=== PATIENT | female | born 1980 | race African-American/Black ===

== ENCOUNTER 2019-07-22 06:58 | Emergency (ER) | payer MEDICAID ==
[~2019-07-22] VITALS: Ht 165.1 cm; Wt 104.3 kg
[2019-07-22] MEDS ORDERED: ALBUTEROL2.5 MG/3 M INH (07:10)
--- NOTE | 2019-07-22 07:20 | NUR ---
ED Nurse Note:urine sent to labs
[2019-07-22 07:34] VITALS: BP 104/74
[2019-07-22 07:42] LABS: APPEARANCE,URINE SLIGHTLY CLOUDY; BILIRUBIN, URINE NEGATIVE (NEGATIVE); COLOR,URINE PALE YELLOW; GLUCOSE, URINE (UA) NEGATIVE (NEGATIVE); KETONES,URINE NEGATIVE (NEGATIVE); LEUKOCYTE ESTERASE ,URINE 3+ (NEGATIVE); NITRITE,URINE NEGATIVE (NEGATIVE); PH,URINE 6.5 (4.5-8.0); PROTEIN,URINE 3+ (NEGATIVE); UROBILINOGEN,URINE NORMAL MG/DL (0.0-1.0)
--- NOTE | 2019-07-22 07:48 | Emergency Room Report ---
History of Present Illness General Chief Complaint: Female Urogenital Problems Source: Patient Present Illness HPI Patient is a 39-year-old female presents after increased dysuria and urinary frequency. She had onset of symptoms 2 days ago. She had prior history of urinary infections. She had not been vomiting. She denies any flank pain. She had not been having any hematuria. Denies any vaginal discharge. She had prior urinary infections in the past. She states this feels similar. She reports having prior tubal ligation. Allergies: Coded Allergies: IODINE (Verified Allergy, Unknown, 07/22/19) Patient History Past Medical History: see triage record Last Menstrual Period: 07/11/19 Now: No Reviewed Nursing Documentation: PMH: Agreed; PSxH: Agreed Nursing Documentation-PMH Past Medical History: No History, Except For Hx Asthma: Yes Review of Systems All Other Systems: negative except mentioned in HPI Physical Exam Vital Signs Date Time Temp Pulse Resp B/P (MAP) Pulse Ox O2 Delivery O2 Flow Rate FiO2 07/22/19 07:04 98.8 76 13 104/74 (84) 99 Room Air General Appearance: well appearing, no apparent distress, alert, GCS 15, non- toxic Head: normocephalic, atraumatic ENT: hearing grossly normal, normal voice Neck: full range of motion, supple Respiratory: lungs clear, no respiratory distress, speaking full sentences Cardiovascular #1: normal inspection Gastrointestinal: normal inspection Genitourinary: no CVA tenderness Musculoskeletal: no calf tenderness Neurologic: normal inspection, alert, oriented x3, responsive, normal gait Psychiatric: mood/affect normal Skin: no rash Medical Decision Making Diagnostic Impression: Primary Impression: Urinary tract infection ER Course Patient presented for dysuria. Differential diagnosis included was not limited to appendicitis, urinary tract infection, urethritis, herpes among others. Urinalysis showed some evidence of infection. Urine test was negative. Patient has a benign exam and does not appear to require other imaging studies or labs at this time. No fever or CVA tenderness to suggest pyelonephritis. Patient given first dose of antibiotics in the emergency department. Patient appears to be stable for outpatient management. Patient was advised to have urine recheck for clearance. Advised to return for fever, increased pain, persistent vomiting or other concerns. Labs Test 07/22/19 07:20 Urine Color Pale yellow Urine Appearance Slightly cloudy Urine pH 6.5 (4.5-8.0) Urine Specific Donna 1.015 (1.005-1.035) Urine Protein 3+ (NEGATIVE) Urine Glucose (UA) Negative (NEGATIVE) Urine Ketones Negative (NEGATIVE) Urine Blood 3+ (NEGATIVE) Urine Nitrite Negative (NEGATIVE) Urine Bilirubin Negative (NEGATIVE) Urine Urobilinogen Normal MG/DL (0.0-1.0) Urine Leukocyte Esterase 3+ (NEGATIVE) Urine RBC 2-4 /HPF (0 - 2) Urine WBC Tntc /HPF (0 - 2) Urine Squamous Epithelial Cells Occasional /LPF Urine Bacteria Few /HPF (NONE) Urine HCG, Qualitative Negative (NEGATIVE) Last Vital Signs Date Time Temp Pulse Resp B/P (MAP) Pulse Ox O2 Delivery O2 Flow Rate FiO2 07/22/19 07:34 98.8 68 13 104/74 99 Room Air Status: improved Disposition: HOME, SELF-CARE Condition: Stable Scripts Nitrofurantoin Monohyd/M-Cryst* (MACROBID 100 MG*) 100 Mg Capsule 100 MG ORAL EVERY 12 HOURS, #14 CAP Prov: Randy Polo MD 07/22/19 Fluconazole (FLUCONAZOLE) 100 Mg Tablet 100 MG ORAL DAILY, #1 TAB 0 Refills Prov: Randy Polo MD 07/22/19 Phenazopyridine Hcl* (PYRIDIUM*) 200 Mg Tablet 200 MG ORAL THREE TIMES A DAY, #14 TAB 0 Refills Prov: Randy Polo MD 07/22/19 Referrals: [facility],REFERRING (PCP) Randy Polo MD Jul 22, 2019 07:48
[2019-07-22] MEDS ORDERED: FLUCONAZOLE100 MG ORAL (07:50)
[2019-07-22] MEDS ORDERED: PHENAZOPYRIDIN200 MG ORAL (07:50)
[2019-07-22] MEDS ORDERED: NITROFURANTOIN100 M2 ORAL (07:50)
[2019-07-22 07:56] VITALS: BP 104/74
[2019-07-22] MEDS ORDERED: Phenazopyridine 200mg tab ORAL ONE (08:00)
--- NOTE | 2019-07-22 08:00 | NUR ---
ER DISCHARGE NOTE: Patient is cleared to be discharged per ERMD, pt is aox4, on room air, with stable vital signs. pt was given dc and prescription instructions, pt was able to verbalize understanding, pt is able to ambulate with steady gait. pt took all belongings.
== END 2019-07-22 08:00 | disposition home or self-care (01) ==
LOC: EMR 07:23
DX: N39.0 Urinary tract infection, site not specified (principal); Z91.041 Radiographic dye allergy status
CPT/HCPCS: 81003; 81025; 87086; 87181; Z7502; 99283